=== PATIENT | male | born 1990 | race Caucasian/White ===

== ENCOUNTER 2021-11-02 13:25 | Emergency (ER) | payer OTHER, SELFPAY ==
[2021-11-02 13:26] VITALS: BP 167/96; PULSE 97; RESP 16; TEMP 37.2; O2SAT 98; BMI 38.5
--- NOTE | 2021-11-02 14:35 | ED.VIS.LOWEX ---
HPI History of Present Illness HPI Narrative: Patient presents with left knee injury that occurred yesterday. Patient states he was in [place] and was carrying a canoe. Patient states his left knee twisted. Patient thinks he had a varus stress placed on his left knee. Patient states he then fell and his left knee was bent up into the canoe. Patient also admits to some pain in his right ankle. Patient states he heard a pop in his left knee at the time of the injury. Patient denies any loss of consciousness. Patient denies any paresthesias or weakness. Patient states his pain is worse with any movement of his left knee. Patient states he is unable to extend his left knee. Chief Complaint: Lower Extremity Injury Informant: patient Occured/Mechanism Mechanism/Context: Yes fall Onset/Context/Timing Onset: Yesterday Context: Sudden Onset Timing: Continuous Quality of Pain: Dull and Aching Location: Left knee Worsened by: Movement Relieved by: Nothing Associated Symptoms Associated Symptoms: Negative for Parasthesia, Weakness or Loss of Funtion PFSH PFSH Medical History no medical history no medical history Home Medications hydrocodone-acetaminophen 5-325mg 5mg-325mg 1 tab PO Q6H PRN PRN Pain 3 days #10 TABLETS 11/02/21 [Rx Last Taken Unknown] Allergy/AdvReac Type Severity Reaction Status Date / Time No Known Allergies Allergy Verified 11/02/21 13:25 Surgical History (Updated 11/02/21 @ 14:[address] Jorge L Madrid DO) History of back surgery Social History Smoking Status: Never smoker ROS ROS ED Constitutional Constitutional ED: Denies chills or fever(s) Eyes Eyes: Denies blurry vision or change in vision ENT ENT ED: Denies rhinorrhea or sore throat Cardiovascular Cardiovascular: Denies chest pain or palpitations Respiratory/Chest Respiratory/Chest: Denies cough or dyspnea Gastrointestinal Gastrointestinal: Denies nausea or vomiting Genitourinary Genitourinary ED: Denies dysuria or hematuria Musculoskeletal Musculoskeletal: Denies back pain or neck pain Integumentary Denies abscess or rash Neurologic Neurologic: Denies headache(s) or weakness Allergic/Immunologic Allergic/Immunologic ED: Denies mouth swelling or urticaria EXAM Physical Exam Const Vital Signs: 11/02/21 13:26 Temperature 98.9 F Temperature Source Temporal Pulse Rate 97 Respiratory Rate 16 Blood Pressure 167/96 H Blood Pressure Mean 119 Pulse Ox 98 Oxygen Delivery Method Room Air Positive well nourished, well developed and obese General Appearance ED: well developed and NAD Nutritional Appearance: obese HEENT Reports moist mucous membranes Neck full ROM Extremity Extremity Narrative: There is tenderness, edema, and ecchymosis over the lateral aspect of the right ankle. There is no tenderness over the fifth metatarsal. There is no tenderness over the proximal fibula. There is good range of motion of the right ankle. There is some pain with inversion of the right ankle. There is tenderness and edema over the left knee. There is an effusion in the left knee. There is no bony crepitance or step-off. Range of motion was limited in all motions of the left knee secondary to pain. Patient was unable to extend his left knee. Patient was unable to hold the lower leg off of the bed against gravity. Pedal pulses are equal bilaterally. Sensation was intact to light touch in all digits. Capillary refill was less than 2 seconds in all digits. General Extremety ED: Yes weight-bearing difficulty General Extremity: weight-bearing difficulty Neuro oriented x3, CN's II-XII intact bilaterally, moves all extremities and no sensory deficits noted Sensorium / Orientation: alert Motor Exam: strength 5/5 throughout Psych mental status grossly normal MDM MDM MDM Narrative Medical decision making narrative: X-rays of the right ankle were obtained. There are 3 views. On my interpretation, there is no acute fracture or dislocation. There is some soft tissue swelling noted. Radiologist also interpreted the x-rays and agrees. X-rays of the left knee were obtained. There are 4 views. On my interpretation, there is no acute fracture. There is a high riding patella. There is no dislocation. Radiologist also interpreted the x-rays and agrees. Patient was advised of his findings. Patient was placed in a knee immobilizer. Patient has crutches. Patient was given a prescription for Thornton. Patient was instructed to ice and elevate the left knee. Patient requested to follow-up with [facility]. Case was discussed with Dr. Fleming. He is agreeable with the plan. Patient was instructed to follow-up this week. Patient understood and was agreeable with the plan. All questions were answered. Radiography Diagnostic Testing: Clinical Impression(s) from Imaging Studies Ankle X-Ray 11/02/21 14:43 IMPRESSION: No acute fracture or dislocation. Lateral soft tissue swelling consistent with ligamentous injury. Electronically Signed: Renato Callejas MD at 15:14 EDT , Knee X-Ray 11/02/21 14:43 IMPRESSION: Suspect patellar tendon rupture and correlation with MRI is recommended. Electronically Signed: Renato Callejas MD at 15:16 EDT , Discharge Plan Triage Chief Complaint: Lower Extremity Injury ED Provider: Jorge L Madrid Dx/Rx/DC Orders Clinical Impression: Traumatic rupture of left patellar tendon, Right ankle sprain Instructions: ED Patellar Dislocation/Subluxation, ED Ankle Sprain (Adult) Prescriptions: New hydrocodone-acetaminophen [hydrocodone-acetaminophen] 5-325 mg tablet 1 tab PO Q6H PRN PRN (Reason: Pain) 3 Days Qty: 10 0RF Primary Care Provider: Care Physician,No Primary Referrals: Brian Fleming MD [Med Staff - Active Staff] - 3-5 Days Care Physician,No Primary [Primary Care Provider] - Disposition Disposition: Home, Self Care
--- NOTE | 2021-11-02 14:43 | RAD_ITS ---
STUDY: X-RAY - RIGHT ANKLE REASON FOR EXAM: Male, 30 years old. Injury/Pain TECHNIQUE: 3 view(s) of the ankle. COMPARISON: None. FINDINGS: Normal visualized distal tibia and fibula. Normal medial and lateral malleoli. Normal tibiotalar articulation and ankle mortise. Normal visualized talus and calcaneus. Small plantar calcaneal enthesophyte. The visualized subtalar, talonavicular, calcaneocuboid and tarsal articulations are normal. Lateral soft tissue swelling consistent with ligamentous injury. RAD/Ankle min 3 Views IMPRESSION: No acute fracture or dislocation. Lateral soft tissue swelling consistent with ligamentous injury. Electronically Signed: Renato Callejas MD at 15:14 EDT ,
--- NOTE | 2021-11-02 14:43 | RAD_ITS ---
STUDY: X-RAY - LEFT KNEE REASON FOR EXAM: Male, 30 years old. Injury/Pain TECHNIQUE: 4 view(s) of the knee. COMPARISON: None. FINDINGS: Normal visualized distal femur. Normal visualized proximal tibia and fibula. Normal proximal tibiofibular articulation. Patella alto with the severe prepatellar soft tissue swelling suggestive of patellar tendon rupture. MRI would be useful. Normal medial femorotibial compartment. Normal lateral femorotibial compartment. Normal patellofemoral articulation. The soft tissue structures are unremarkable. RAD/Knee 4 or More Views IMPRESSION: Suspect patellar tendon rupture and correlation with MRI is recommended. Electronically Signed: Renato Callejas MD at 15:16 EDT ,
[2021-11-02] MEDS: Morphine 4 MG/ML Syringe IV (14:52)
[2021-11-02 15:41] VITALS: BP 149/92; PULSE 80; RESP 16; O2SAT 96
== END 2021-11-02 16:14 | disposition home or self-care (01) ==
PROVIDERS: Emergency Provider Emergency Medicine; Visit Provider Emergency Medicine
DX: S76.112A Strain of left quadriceps muscle, fascia and tendon, initial encounter (principal); X50.1XXA Overexertion from prolonged static or awkward postures, initial encounter; E66.9 Obesity, unspecified; S93.401A Sprain of unspecified ligament of right ankle, initial encounter; Z68.38 Body mass index [BMI] 38.0-38.9, adult
CPT/HCPCS: 73564; 73610; 96374; 99285; A4216

== ENCOUNTER 2021-11-08 14:19 | Emergency (ER) | payer OTHER, SELFPAY ==
[2021-11-08 14:20] VITALS: BP 147/78; PULSE 91; RESP 20; TEMP 35.2; O2SAT 93; BMI 38.5
[2021-11-08 14:23] VITALS: BP 169/82; PULSE 83; RESP 20; TEMP 36.6; O2SAT 100
--- NOTE | 2021-11-08 14:34 | EX.ED.DYSGE1 ---
HPI History of Present Illness Chief Complaint: Other, Pain/Inj Detail of Chief Complaint: Postop knee pain Informant: patient and spouse/S.O. Onset/Context/Timing Current Severity: Severe Maximum Severity: Severe Narrative Narrative: Patient present secondary to postop knee pain. Patient had surgery yesterday with Dr. Fleming for a patellar tendon repair of his left knee. He is currently on oxycodone 5 mg tabs. He took 2 tabs at a time and only got pain relief for about an hour. He was advised to come in for pain control and then increase his pain medication to every 4 hours. PFSH PFSH Medical History no medical history no medical history Home Medications hydrocodone-acetaminophen 5-325mg 5mg-325mg 1 tab PO Q6H PRN PRN Pain 3 days #10 TABLETS 11/02/21 [Rx Last Taken Unknown] cyclobenzaprine 10 mg tablet 10 mg PO TID PRN muscle spasm #14 tabs 11/08/21 [Rx Last Taken Unknown] Allergy/AdvReac Type Severity Reaction Status Date / Time No Known Allergies Allergy Verified 11/08/21 14:23 Surgical History History of back surgery History of knee surgery Social History Smoking Status: Never smoker ROS ROS ED Constitutional Constitutional ED: Denies chills or fever(s) Eyes Eyes: Denies change in vision or discharge from eye(s) ENT ENT ED: Denies discharge from eye(s), rhinorrhea or sore throat Cardiovascular Cardiovascular: Denies chest pain or palpitations Respiratory/Chest Respiratory/Chest: Denies cough or dyspnea Gastrointestinal Gastrointestinal: Denies abdominal pain, diarrhea, nausea or vomiting Genitourinary Genitourinary ED: Denies dysuria Musculoskeletal Musculoskeletal: Reports extremity pain; Denies back pain Integumentary Denies Abrasions or rash Neurologic Neurologic: Denies headache(s) or weakness Allergic/Immunologic Allergic/Immunologic ED: Denies lip swelling or urticaria EXAM Physical Exam Const Vital Signs: 11/08/21 14:20 11/08/21 14:23 11/08/21 15:34 Temperature 95.4 F L 97.9 F Temperature Source Temporal Oral Pulse Rate 91 83 83 Respiratory Rate 20 H 20 H 17 Blood Pressure 147/78 H 169/82 H 146/83 H Blood Pressure Mean 101 111 104 Pulse Ox 93 100 96 Oxygen Delivery Method Room Air Room Air Room Air 11/08/21 16:53 11/08/21 17:09 Temperature Temperature Source Pulse Rate 74 Respiratory Rate 17 Blood Pressure 163/79 H Blood Pressure Mean 107 Pulse Ox 97 Oxygen Delivery Method Room Air Positive well nourished and well developed General Appearance ED: well developed HEENT Reports normocephalic and head/scalp atraumatic Eyes PERRL and EOMs intact bilaterally Neck supple Chest Wall inspection of chest normal and palpation of chest normal Resp normal respiratory effort and clear to auscultation bilaterally Cardio regular rate and regular rhythm GI normal to inspection, nondistended, normoactive bowel sounds Palpation: soft Extremity Extremity Narrative: Left lower extremity wrapped in Erwin wrap with knee brace in place. Dressing is pulled back and surgical incision site appears clean. Good cap refill distally and can wiggle toes. Normal sensation. Neuro oriented x3 and no sensory deficits noted Sensorium / Orientation: alert Psych mental status grossly normal Skin no rashes or lesions noted MDM MDM MDM Narrative Medical decision making narrative: IV line established. Patient initially given 1 mg of Dilaudid with Zofran. Treatment and Re-Evaluation Narrative: Patient reportedly had no significant improvement. He was having a lot of spasms in his leg. He was given additional 0.5 mg of Dilaudid along with a dose of Flexeril. On repeat eval he states he had some brief improvement in his pain but at the time of my exam was back to the level he was when he came in. He is given an additional 1 mg of Dilaudid. At this time patient states he is actually significantly improved and rates his pain a 2 out of 10. He will continue his oxycodone at home every 4 hours. I will write him for some Flexeril to help with muscle spasm as well. Return instructions provided. Discharge Plan Triage Chief Complaint: Other, Pain/Inj ED Provider: Linda Clark Dx/Rx/DC Orders Clinical Impression: Post-op pain Instructions: ED Post Op Wound Check, Pain Prescriptions: New cyclobenzaprine 10 mg tablet 10 mg PO TID PRN (Reason: muscle spasm) Qty: 14 0RF No Action hydrocodone-acetaminophen [hydrocodone-acetaminophen] 5-325 mg tablet 1 tab PO Q6H PRN PRN (Reason: Pain) 3 Days Qty: 10 0RF Primary Care Provider: Care Physician,No Primary Referrals: Brian Fleming MD [Med Staff - Active Staff] - 1-2 Days if not improving Care Physician,No Primary [Primary Care Provider] - Disposition Disposition: Home, Self Care
[2021-11-08] MEDS: Ondansetron 4 MG/2 ML Vial IV (14:46)
[2021-11-08] MEDS: HYDROmorphone 1 MG/ML Syringe IV ×2 (14:46→17:07)
[2021-11-08 15:34] VITALS: BP 146/83; PULSE 83; RESP 17; O2SAT 96
[2021-11-08] MEDS: cycloBENZAPRine HCl 10 MG Tablet PO (16:01)
[2021-11-08] MEDS: HYDROmorphone 0.5 MG/0.5 ML SYRINGE IV (16:02)
[2021-11-08 16:53] VITALS: PULSE 74; RESP 17; O2SAT 97
[2021-11-08 17:09] VITALS: BP 163/79
[2021-11-08 18:32] VITALS: BP 156/84; PULSE 79; RESP 17; O2SAT 99
== END 2021-11-08 18:34 | disposition home or self-care (01) ==
PROVIDERS: Emergency Provider Emergency Medicine; Visit Provider Emergency Medicine
DX: G89.18 Other acute postprocedural pain (principal); M25.562 Pain in left knee
CPT/HCPCS: 96374; 96375; 96376; 99282; A4216; J2405

== ENCOUNTER 2024-07-22 22:06 | Emergency (ER) | payer OTHER, SELFPAY ==
[2024-07-22 22:06] VITALS: BP 189/95; PULSE 103; RESP 18; TEMP 36.6; O2SAT 100; BMI 41.4
--- NOTE | 2024-07-22 22:22 | CT_ITS ---
PROCEDURE: ABDOMEN/PELVIS W IV CONT ONLY 07/22/2024 REASON FOR EXAM: LEFT BACK FLANK PAIN TECHNIQUE: Abdomen and pelvis CT with intravenous contrast. Coronal and Sagittal reconstruction series were provided. PATIENT PREPARATION: Per protocol ORAL CONTRAST TYPE: None. AMOUNT: mL CONTRAST: Isovue 3 7 VOLUME: 97 mL. One or more dose reduction techniques were used (e.g., Automated exposure control, adjustment of the mA and/or kV according to patient size, use of iterative reconstruction technique. RADIATION DOSE SUMMARY: CTDlvol: 6.65+ 24.18 mGy DLP: 1404.82 mGycm COMPARISON: None. FINDINGS: The soft tissues are unremarkable. Degenerative changes of the lumbar spine. Straightening of the normal lumbar lordosis. The aorta is normal in caliber. No suspicious lymphadenopathy. The liver, gallbladder, pancreas, spleen, and adrenals are unremarkable. No renal or ureteral calculi. No hydroureteronephrosis. The urinary bladder is unremarkable. Normal caliber large and small bowel. The appendix is normal in caliber. No surrounding inflammatory changes. CT/Abdomen/Pelvis W IV Cont ONLY IMPRESSION: No nephrolithiasis or obstructive uropathy. No acute abnormalities of the abdomen or pelvis. Reading Location: [place] [id number]
--- NOTE | 2024-07-22 22:23 | EDS_ITS ---
HPI History of Present Illness Chief Complaint: Back Narrative Narrative: Patient is a 33-year-old male with no known significant past medical history who presents to the emerged part with chief complaint of left back pain. Patient states that his back pain is on the left and radiates down the back of his left leg. He states that he was seen at a outside hospital yesterday and was given a shot of Dilaudid and muscle relaxer and was ultimately sent home. He states he was sent home with pain pills, muscle relaxer, steroid taper and states that the pain has not gotten any better. He states that he does not recall any inciting events and notes that this all started on Wednesday that progressively worsen. Patient denies trauma or bending over picking up anything heavy. Patient states that he feels like he is having the urge to pee but cannot pee. States that he is having normal bowel movements. In the triage note is documented that he is having right back pain and it is left back pain. PFSH PFSH Home Medications ?Medication ?Instructions ?Recorded ?Last Taken ?Type hydrocodone-acetaminophen 5-325mg 1 tab PO Q6H PRN PRN Pain 3 days 11/02/21 Unknown Rx 5mg-325mg #10 TABLETS cyclobenzaprine 10 mg tablet 10 mg PO TID PRN muscle s pasm #14 11/08/21 Unknown Rx tabs gabapentin 300 mg capsule 300 mg PO TID 4 days #12 cap s 07/23/24 Unknown Rx Allergy/AdvReac Type Severity Reaction Status Date / Time No Known Allergies Allergy Verified 07/22/24 22:08 Surgical History History of knee surgery History of back surgery Social History Smoking Status: Never smoker ROS ROS ED ROS Narrative Constitutional: Denies fevers, chills, headaches, lightness, dizziness Eyes: Denies change in vision double vision blurry vision Cardiovascular: Denies chest pain or palpitations Respiratory: Denies coughing Abdomen: Denies abdominal pain nausea vomit diarrhea : Complains urinary symptoms as noted above Neurological: Complains of left-sided back pain rating down his leg as noted above denies any other numbness tingling or weakness Musculoskeletal: Complains of back pain as noted above Skin: Denies any rashes or lesions EXAM Physical Exam Narrative Exam Narrative: General: Patient was in the squatting position in the room states that this is his position of comfort and he was able to stand up without any difficulty Head: Atraumatic, normocephalic Eyes: PERRL bilateral, EOMI blood, no conjunctival injection noted Neck: Soft, supple, trachea midline Cardiovascular: Regular rhythm Respiratory: Clear to auscultation bilaterally Abdomen: Soft, nondistended, nontender to palpation Musculoskeletal: Patient has tenderness palpation over the left quadratus lumborum region, no midline tenderness palpation no step-offs or deformities noted Extremities: +5/5 strength noted in the bilateral upper and lower extremities Neurological: Patient follow commands that he was at [facility] year is 2024. Sensation grossly tact no saddle anesthesia noted Skin: Warm, dry, tact no rashes or lesions noted Const Vital Signs: 07/22/24 22:06 07/23/24 00:06 Temperature 98 F Temperature Source Oral Pulse Rate 103 H 79 Respiratory Rate 18 15 Blood Pressure 189/95 H 133/93 H Blood Pressure Mean 126 106 Pulse Ox 100 98 Oxygen Delivery Method Room Air Room Air MDM MDM MDM Narrative Medical decision making narrative: Patient is a 33-year-old male who presents to the emergency department with a chief complaint of left lower back pain. On the differential diagnose includes but not limited to musculoskeletal strain, herniated disc, cauda equina syndrome although have low suspicion for this. Patient be bladder scanned. Patient be given Valium and Norflex. Once workup is obtained reviewed he will be reevaluated Patient urinated here in the emergency department Postvoid bladder scan 0 cc Patient CBC reviewed showed mild leukocytosis of 11,000 likely reactive, hemoglobin 15.8, plate count of 245. Patient sodium normal 139, potassium normal 3.9, creatinine normal at 1.15. Patient AST and ALT are 18 and 22 respectively with a normal total bilirubin 0.33. Patient lipase 20, urinalysis reviewed and showed no evidence of infection. Patient CT abdomen pelvis with IV contrast reviewed showed no nephrolithiasis or obstructive uropathy no acute a bnormalities in the abdomen or pelvis. At reevaluation the patient is still having significant pain therefore he was ordered gabapentin and Toradol Reevaluated the patient again he was still having significant pain therefore added on morphine and another dose of Norflex as well as Zofran. Reevaluated the patient again and he is feeling much improved he would like to go home at this point in time. He was advised to continue to rotate Tylenol ibuprofen [id number] as well as use the prednisone, Percocet, Zofran, Lidoderm patch that he is already prescribed will add on gabapentin as well. He was advised that he needs to stretch. He was encouraged return with worsening symptoms or concerns. Once again have low suspicion for cauda equina syndrome given that he was able to urinate here in the emergency department with a postvoid residual volume of 0 cc. He is advised follow-up with his doctor as well. All question concerns answered discharged home in stable condition. Lab Data Labs: Laboratory Results - last 24 hr 07/22/24 22:40 WBC 11.3 H RBC 5.20 Hgb 15.8 Hct 44.2 MCV 85.0 MCH 30.4 MCHC 35.7 RDW Std Deviation 37.8 RDW Coeff of Svetlana 12.3 Plt Count 245 MPV 10.5 Immature Gran % (Auto) 0.600 Neut % (Auto) 60.6 Lymph % (Auto) 29.6 [place] % (Auto) 7.5 Eos % (Auto) 1.3 Baso % (Auto) 0.4 Absolute Neuts (auto) 6.8 Absolute Lymphs (auto) 3.34 Nucleated RBC % 0 Sodium 139 Potassium 3.9 Chloride 103 Carbon Dioxide 23.0 Anion Gap 12 BUN 26 H Creatinine 1.15 Estim Creat Clear Calc 141.97 Est GFR (MDRD) Non-Af 87 BUN/Creatinine Ratio 22.6 H Glucose 93 Calcium 9.1 Total Bilirubin 0.33 AST 18 ALT 22 Alkaline Phosphatase 65 Total Protein 7.3 Albumin 4.6 Globulin 2.7 Albumin/Globulin Ratio 1.7 Lipase 20 Urine Color Yellow Urine Clarity Clear Urine pH 5.0 Ur Specific [place] 1.025 Urine Protein 30 H Urine Glucose (UA) Normal Urine Ketones Negative Urine Occult Blood 10 H Urine Nitrite Negative Urine Bilirubin Negative Urine Urobilinogen Normal Ur Leukocyte Esterase Negative Urine RBC 0-5 SEEN Urine WBC 0-5 SEEN Ur Squamous Epith Cells 0-5 SEEN Urine Bacteria 0 SEEN Urine Mucus 0 SEEN Radiography Diagnostic Testing: Clinical Impression(s) from Imaging Studies Abdomen/Pelvis CT 07/22/24 22:22 IMPRESSION: No nephrolithiasis or obstructive uropathy. No acute abnormalities of the abdomen or pelvis. Reading Location: [place] [id number] Discharge Plan Triage Chief Complaint: Back ED Provider: Lance Arizmendi Dx/Rx/DC Orders Clinical Impression: Sciatica Prescriptions: New gabapentin 300 mg capsule 300 mg PO TID 4 Days Qty: 12 0RF No Action hydrocodone-acetaminophen [hydrocodone-acetaminophen] 5-325 mg tablet 1 tab PO Q6H PRN PRN (Reason: Pain) 3 Days Qty: 10 0RF cyclobenzaprine 10 mg tablet 10 mg PO TID PRN (Reason: muscle spasm) Qty: 14 0RF Primary Care Provider: Care Physician,No Primary Referrals: Care Physician,No Primary [Primary Care Provider] - Sonal Horta, ROOFING MACHINE OPERATOR-C [[facility]] - Activity Restrictions/Additional Instructions: Rotate Tylenol and ibuprofen [id number] when you do this you can take some every 3 hours max dose of Tylenol in 24 hours 4000 mg max dose of ibuprofen in 24 hours 3200 mg. Use the other medications that you are prescribed from the other hospital. Do not operate anything under the influence these medications as they make you sleepy and drowsy. 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 Ensure you are stretching as we discussed here. Your blood work did not show any acute findings and your CT of your abdomen and pelvis did not show any acute findings either. Return with any other concerns Print Language: Danish Disposition Disposition: Home, Self Care
[2024-07-22] MEDS: 0.9% Normal Saline (1000mL) 1,000 ML 999 ML IV (22:35)
[2024-07-22] MEDS: diazePAM 5 MG Tablet 2.5 MG PO (22:35)
[2024-07-22] MEDS: Orphenadrine 60 MG/2 ML Ampul 30 MG IV (22:35)
[2024-07-22 22:47] LABS: Bacteria 0 SEEN /hpf (None Seen); Mucous, Urine 0 SEEN /hpf (<or=2+)
[2024-07-22 22:54] LABS: Absolute Lymphocyte Count 3.34 X10^3/uL (0.83-4.51); Absolute Neutrophil Count 6.8 X10^3/uL (2.0-7.7); Basophil# 0.04 X10^3/uL; Basophil% 0.4 % (0-1); Eosinophil# 0.15 X10^3/uL; Eosinophils% 1.3 % (0-5); Hematocrit 44.2 % (40-54); Hemoglobin 15.8 g/dL (13.0-16.5); Lymphocyte # 3.34 X10^3/ul (0.83-4.51); Lymphocyte % 29.6 % (19-41); Mean Corp Hgb Conc 35.7 g/dL (32-36); Mean Corpuscular Hgb 30.4 pg (27.0-32.0); Mean Platelet Vol. 10.5 fl (6.2-12.0); Monocyte# 0.85 X10^3/uL; Monocyte% 7.5 % (0-10); NRBC Flagged by Analyzer 0 % (0-5); Neutrophil # 6.83 X10^3/uL (2.7-7.7); Neutrophil % 60.6 % (47-70); Platelet Count 245 K/mm3 (150-450); RBC Distribution Width CV 12.3 % (11.6-14.6); RBC Distribution Width SD 37.8 fl (35.1-43.9); White Blood Count 11.3 K/mm3 (4.4-11.0)
[2024-07-22 22:59] LABS: Color, Urine Yellow (Yellow); Glucose, Dipstick Normal (Normal); Ketone-Dipstick Negative (Negative); Leukocyte Esterase-Dipstick Negative /ul (Negative); Nitrite-Dipstick Negative (Negative); Occult Blood-Urine 10 /ul (Negative); Protein-Dipstick 30 mg/dl (Negative); Specific Gravity, Urine 1.025 (1.002-1.030); Urine Bilirubin Dipstick Negative (Negative); Urine Clarity Clear (Clear); Urine Urobilinogen Normal (Normal)
[2024-07-22 23:14] LABS: Lipase 20 U/L (13-75)
[2024-07-22 23:17] LABS: ALB/GLOB Ratio 1.7 RATIO (0.9-2.4); AST(SGOT) 18 U/L (<=37); Alanine Aminotransfer ALT/SGPT 22 U/L (<=46); Albumin, Serum 4.6 g/dL (3.5-5.0); Alkaline Phosphatase 65 U/L (40-129); Anion Gap 12 (5-15); BUN 26 mg/dL (4-19); BUN/Creat Ratio 22.6 RATIO (10-20); Calcium,Total 9.1 mg/dL (7.6-11.0); Chloride 103 mmol/L (98-108); Creatinine, Serum 1.15 mg/dL (0.70-1.20); EST Glomerular Filtration Rate 87 (>60); Estimated Creatinine Clearance 141.97 ml/min (50-250); Globulin 2.7 g/dL (2.2-4.2); Glucose 93 mg/dL (70-99); Potassium 3.9 mmol/L (3.3-5.1); Protein, Total 7.3 g/dL (5.9-8.4); Sodium Level 139 mmol/L (133-145); Total Bilirubin 0.33 mg/dL (0.00-1.30)
[2024-07-22 23:20] LABS: Red Blood Cells-Urine 0-5 SEEN /hpf (0-5); Squamous Epithelial Cells - UA 0-5 SEEN /hpf (0-5); White Blood Cells 0-5 SEEN /hpf (0-5)
[2024-07-22] MEDS: Ketorolac 30 MG/ML Syringe IV (23:57)
[2024-07-22] MEDS: Gabapentin 300 MG Capsule PO (23:57)
[2024-07-23 00:06] VITALS: BP 133/93; PULSE 79; RESP 15; O2SAT 98
[2024-07-23] MEDS: Ondansetron 4 MG/2 ML Vial IV (00:40)
[2024-07-23] MEDS: Morphine 4 MG/ML Syringe IV (00:41)
[2024-07-23] MEDS: Orphenadrine 60 MG/2 ML Ampul 30 MG IV (00:43)
[2024-07-23 01:10] VITALS: BP 153/85; PULSE 85; RESP 20; TEMP 36.7; O2SAT 100
== END 2024-07-23 01:12 | disposition home or self-care (01) ==
PROVIDERS: Emergency Provider Emergency Medicine; Visit Provider Emergency Medicine
DX: M54.32 Sciatica, left side (principal)
CPT/HCPCS: 74177; 80053; 81001; 83690; 85025; 96361; 96372; 96374; 96375; 96376; 99284; Q9967; A4216; J2405